=== PATIENT | male | born 2000 | race Two or more races ===

== ENCOUNTER 2019-12-21 10:17 | Outpatient (CLI) | payer OTHER | END 2019-12-21 10:26 | disposition home or self-care (01) | LOC: LAB 10:17 | DX: M25.561 Pain in right knee (principal); M25.562 Pain in left knee; E80.7 Disorder of bilirubin metabolism, unspecified; Z00.00 Encounter for general adult medical examination without abnormal findings; Z13.6 Encounter for screening for cardiovascular disorders ==

== ENCOUNTER 2020-04-28 10:46 | Emergency (ER) | payer OTHER ==
[~2020-04-28] VITALS: Ht 170.2 cm; Wt 59.0 kg
[2020-04-28] MEDS ORDERED: FOLIC ACID0.8 M1 PO (10:58)
== END 2020-04-28 14:16 | disposition home or self-care (01) ==
LOC: ER 10:46 → EMR PED 10:46 → ER 11:12
DX: S93.491A Sprain of other ligament of right ankle, initial encounter (principal); X50.0XXA Overexertion from strenuous movement or load, initial encounter; Y93.67 Activity, basketball; Y92.89 Other specified places as the place of occurrence of the external cause; Y99.8 Other external cause status